=== PATIENT | male | born 1980 | race Caucasian/White ===

== ENCOUNTER 2022-12-07 12:33 | Outpatient (CLI) | payer BC, SELFPAY | END 2022-12-07 12:34 | disposition home or self-care (01) | LOC: LKVREF 12:34 | PROVIDERS: Visit Provider Emergency Medicine | DX: Z01.818 Encounter for other preprocedural examination (principal); R03.0 Elevated blood-pressure reading, without diagnosis of hypertension | CPT/HCPCS: 80048 ==